=== PATIENT | female | born 1990 | race Hispanic/Latino ===

== ENCOUNTER 2022-11-17 18:00 | Inpatient (IN) | payer MEDICAID, OTHER ==
[2022-11-17 20:24] VITALS: BMI 28.3
[2022-11-17] MEDS ORDERED: Acetaminophen 500 MG TAB PO PRN (20:45)
[2022-11-17] MEDS ORDERED: Carboprost 250 MCG/ML AMP IM PRN (20:45)
[2022-11-17] MEDS ORDERED: Ibuprofen 800 MG TAB PO PRN (20:45)
[2022-11-17] MEDS ORDERED: hydrALAZINE 20 MG/ML VIAL SLOW IVP PRN (20:45)
[2022-11-17] MEDS ORDERED: Promethazine HCl 25 MG/ML VIAL IM PRN (20:45)
[2022-11-17] MEDS ORDERED: Methylergonovine 0.2 MG/ML VIAL IM PRN (20:45)
[2022-11-17] MEDS ORDERED: Ondansetron PF 4 MG/2 ML Vial IVP PRN (20:45)
[2022-11-17] MEDS ORDERED: Misoprostol 200 MCG TAB PR PRN (20:45)
[2022-11-17] MEDS ORDERED: Lidocaine 1% (PF) 30 ML VIAL SC PRN (20:45)
[2022-11-17] MEDS ORDERED: NS w/ Oxytocin 30 units 500 ML IV SCH ×3 (21:00)
[2022-11-17 21:15] LABS: Hematocrit 33.3 % (34.9-44.5); Hemoglobin 11.7 g/dL (12.0-15.5); Mean Corpuscular HGB CONC 35.1 g/dL (32.0-36.0); Mean Corpuscular Hemoglobin 30.5 pg (27.0-33.0); Mean Corpuscular Volume 86.9 fl (81.6-98.3); Platelet Count 248 10x3/uL (150-450); RBC Distribution Width 13.2 % (11.5-14.5); Red Blood Cell (RBC) Count 3.83 10x6/uL (3.90-5.03); White Blood Cell (WBC) Count 5.4 10x3/uL (3.5-10.5)
[2022-11-17 21:49] LABS: Hep B Surf Ag - L&D Non-Reactive S/CO (NonReactive)
[2022-11-17 21:49] LABS: Syphilis Antibody Nonreactive (Nonreactive); Syphilis Antibody Index 0.08 S/CO (<1.00 Non-Reactive)
[2022-11-18] MEDS ORDERED: CEFAZOLIN 2 GM VIAL ONE (15:53)
[2022-11-18] MEDS ORDERED: Azithromycin 500 MG VIAL ONE (15:54)
[2022-11-18] MEDS ORDERED: Oxytocin 10 UNITS/ML VIAL ONE (16:55)
[2022-11-18] MEDS ORDERED: ePHEDrine Sulfate 50 MG/10 ML VIAL ONE (16:56)
[2022-11-18] MEDS ORDERED: Ondansetron PF 4 MG/2 ML Vial ONE (16:56)
[2022-11-18] MEDS ORDERED: Ketorolac Tromethamine 30 MG/ML VIAL ONE (16:56)
[2022-11-18] MEDS ORDERED: PHENYLEPHRINE-NS 100 MCG/ML 10 ML SYRINGE ONE (16:56)
[2022-11-18] MEDS ORDERED: fentaNYL 50 mcg/mL 1 mL Vial ONE (16:56)
[2022-11-18] MEDS ORDERED: Morphine PF 10 MG/10 ML VIAL ONE (16:56)
[2022-11-18] MEDS ORDERED: Promethazine HCl 25 MG/ML VIAL IM PRN ×2 (17:36→18:14)
[2022-11-18] MEDS ORDERED: Naloxone HCl 0.4 mg/ml Vial IV PRN ×2 (17:36→18:14)
[2022-11-18] MEDS ORDERED: diphenhydrAMINE 50 MG/ML VIAL IVP PRN ×2 (17:36→18:14)
[2022-11-18] MEDS ORDERED: Promethazine HCl 25 MG SUPP PR PRN ×2 (17:36→18:14)
[2022-11-18] MEDS ORDERED: Ondansetron PF 4 MG/2 ML Vial IVP PRN ×2 (17:36→18:14)
[2022-11-18] MEDS ORDERED: Naloxone HCl 0.4 mg/ml Vial IVP PRN ×4 (17:36→18:14)
[2022-11-18] MEDS ORDERED: Moisturizing Cream (Eucerin) 113 GM JAR TOP PRN ×2 (17:36→18:14)
[2022-11-18] MEDS ORDERED: Hepatitis B Vaccine 10 MCG/0.5 ML SYR ONE (17:37)
[2022-11-18] MEDS ORDERED: Erythromycin Base 0.5% Oint 1 GM TUBE ONE (17:37)
[2022-11-18] MEDS ORDERED: Phytonadione Neonatal 1 MG/0.5 ML AMP ONE (17:37)
[2022-11-18] MEDS ORDERED: Communication Order-Pharmacy FS SCH ×2 (17:45→18:15)
[2022-11-18] MEDS ORDERED: Promethazine HCl 25 MG/ML VIAL ONE (17:49)
[2022-11-18] MEDS ORDERED: Lanolin Ointment 7 GM TUBE TOP PRN (17:59)
[2022-11-18] MEDS ORDERED: Acetaminophen 325 MG TAB PO PRN (17:59)
[2022-11-18] MEDS ORDERED: diphenhydrAMINE 25 MG CAP PO PRN (17:59)
[2022-11-18] MEDS ORDERED: Bisacodyl 10 MG SUPP PR PRN (17:59)
[2022-11-18] MEDS ORDERED: Simethicone Chewable 80 MG TAB PO PRN (17:59)
[2022-11-18] MEDS ORDERED: Ondansetron HCl/PF 4 MG/2 ML Vial IVP PRN (18:14)
[2022-11-18] MEDS ORDERED: Meperidine HCl/PF 25 MG/ML VIAL SLOW IVP PRN (18:14)
[2022-11-18] MEDS ORDERED: Fentanyl 50 MCG/1 ML VIAL SLOW IVP PRN (18:14)
[2022-11-18] MEDS ORDERED: L&D-Morphine 4 MG/ML VIAL SLOW IVP PRN (18:14)
[2022-11-18] MEDS ORDERED: Ketorolac Tromethamine 30 MG/ML VIAL IVP PRN (18:14)
[2022-11-18] MEDS ORDERED: Ketorolac Tromethamine 30 MG/ML VIAL IVP SCH (18:15)
[2022-11-18] MEDS: Docusate 100 MG CAP PO SCH (23:04)
[2022-11-19 03:50] LABS: Hematocrit 29.8 % (34.9-44.5); Hemoglobin 10.3 g/dL (12.0-15.5); Mean Corpuscular HGB CONC 34.6 g/dL (32.0-36.0); Mean Corpuscular Hemoglobin 30.7 pg (27.0-33.0); Platelet Count 223 10x3/uL (150-450); RBC Distribution Width 13.3 % (11.5-14.5); Red Blood Cell (RBC) Count 3.35 10x6/uL (3.90-5.03); White Blood Cell (WBC) Count 10.5 10x3/uL (3.5-10.5)
[2022-11-19] MEDS: Ketorolac Tromethamine 30 MG/ML VIAL IVP PRN ×3 (03:55→16:08)
[2022-11-19] MEDS: Docusate 100 MG CAP PO SCH ×2 (07:22→21:15)
[2022-11-19] MEDS ORDERED: HYDROcodone/Acetaminophen 5/325 mg Tablet PO PRN (08:47)
[2022-11-19] MEDS: HYDROcodone/Acetaminophen 5/325 mg Tablet PO PRN (10:08)
[2022-11-19] MEDS: Ibuprofen 800 MG TAB PO SCH (21:15)
[2022-11-20 03:55] LABS: Hemoglobin 9.9 g/dL (12.0-15.5)
[2022-11-20] MEDS: Ibuprofen 800 MG TAB PO SCH ×2 (05:26→13:45)
[2022-11-20] MEDS: HYDROcodone/Acetaminophen 5/325 mg Tablet PO PRN (05:36)
[2022-11-20] MEDS ORDERED: Ferrous Sulfate 325 MG TAB PO SCH (08:30)
[2022-11-20] MEDS: Docusate 100 MG CAP PO SCH (08:44)
[2022-11-20 11:29] VITALS: BP 135/64; TEMP 97.7
== END 2022-11-20 16:20 | disposition home or self-care (01) | DRG 787 ==
LOC: CSHLD 19:40 → CSHPP 11-18 20:55
PROVIDERS: ADMIT Obstetrics & Gynecology; ATTEND Obstetrics & Gynecology
PROC: 0U7C7ZZ Dilation of Cervix, Via Natural or Artificial Opening (ICD-10-PCS; 2022-11-17)
PROC: 10D00Z1 Extraction of Products of Conception, Low, Open Approach (ICD-10-PCS; principal; 2022-11-18)
PROC: 10907ZC Drainage of Amniotic Fluid, Therapeutic from Products of Conception, Via Natural or Artificial Opening (ICD-10-PCS; 2022-11-18)
PROC: 10H07YZ Insertion of Other Device into Products of Conception, Via Natural or Artificial Opening (ICD-10-PCS; 2022-11-18)
PROC: 3E033VJ Introduction of Other Hormone into Peripheral Vein, Percutaneous Approach (ICD-10-PCS; 2022-11-18)
DX: O34.211 Maternal care for low transverse scar from previous cesarean delivery (principal); D62 Acute posthemorrhagic anemia; O72.2 Delayed and secondary postpartum hemorrhage; Z3A.38 38 weeks gestation of pregnancy; Z37.0 Single live birth; O76 Abnormality in fetal heart rate and rhythm complicating labor and delivery; O69.81X0 Labor and delivery complicated by cord around neck, without compression, not applicable or unspecified; O90.81 Anemia of the puerperium
CPT/HCPCS: 36415; 51702; 85014; 85018; 85027; 86780; 86850; 86900; 86901; 87340; J1885; J2274; J2405; J2550; J2590; J3010

== ENCOUNTER 2022-11-26 12:15 | Day surgery (SDC) | payer MEDICAID ==
[2022-11-26] MEDS ORDERED: hydrALAZINE 20 MG/ML VIAL SLOW IVP PRN (12:50)
[2022-11-26 14:06] LABS: #Eosinphils 0.1 10x3/uL (0.0-0.5); #Monocytes 0.4 10x3/uL (0.0-1.1); #Neutrophils 4.3 10x3/uL (1.5-8.4); %Basophils 0.4 % (0.0-2.0); %Eosinophils 1.5 % (0.0-6.0); %Lymphocytes 35.8 % (18.0-47.0); %Monocytes 4.7 % (0.0-10.0); %Neutrophils 57.1 % (40.0-75.0); Hematocrit 36.9 % (34.9-44.5); Hemoglobin 12.5 g/dL (12.0-15.5); Mean Corpuscular HGB CONC 33.9 g/dL (32.0-36.0); Mean Corpuscular Hemoglobin 30.3 pg (27.0-33.0); Mean Corpuscular Volume 89.3 fl (81.6-98.3); Mean Platelet Volume 8.9 fl (7.4-10.4); Platelet Count 491 10x3/uL (150-450); RBC Distribution Width 12.7 % (11.5-14.5); Red Blood Cell (RBC) Count 4.13 10x6/uL (3.90-5.03); White Blood Cell (WBC) Count 7.5 10x3/uL (3.5-10.5)
[2022-11-26 14:47] LABS: Creatinine, Urine 20.45 mg/dL (47-110); Protein, Urine Random Quant Less than 10 mg/dL (1-14)
== END 2022-11-26 15:20 | disposition home or self-care (01) ==
LOC: CSHLD/OP 12:15
PROVIDERS: ATTEND Emergency Medicine
DX: O16.3 Unspecified maternal hypertension, third trimester (principal); O99.013 Anemia complicating pregnancy, third trimester; D50.9 Iron deficiency anemia, unspecified; Z3A.39 39 weeks gestation of pregnancy; Z79.899 Other long term (current) drug therapy
CPT/HCPCS: 36415; 82570; 84156; 85025; 99283